=== PATIENT | female | born 2000 | race Caucasian/White ===

== ENCOUNTER 2022-02-11 01:31 | Emergency (ER) | payer MEDICAID ==
[~2022-02-11] VITALS: Ht 172.7 cm; Wt 68.0 kg
[2022-02-11] MEDS ORDERED: ONDANSETRON HCL 4MG/2ML INJ IV STA (01:40)
[2022-02-11] MEDS ORDERED: MORPHINE SULFATE 4 MG/ML CPJ (NOT FOR IM USE) IV STA (01:40)
[2022-02-11] MEDS ORDERED: BACITRACIN ZINC OINT UDPKT TOP ONE (01:45)
[2022-02-11] MEDS ORDERED: TETANUS, DIPHTHERIA, PERTUSSIS VAC/PF 0.5ML (>10YR OLD) IM ONE (01:45)
[2022-02-11] MEDS ORDERED: CEFAZOLIN 1000MG PREMIX 50 ML IV ONE (01:45)
[2022-02-11] MEDS ORDERED: CEPH500C2 MT (04:03)
[2022-02-11] MEDS ORDERED: HYDR-4001 MT (04:03)
[2022-02-11 04:22] VITALS: BP 140/71
== END 2022-02-11 04:22 | disposition home or self-care (01) ==
LOC: EDBD 01:31 → ER 01:31
DX: S92.312B Displaced fracture of first metatarsal bone, left foot, initial encounter for open fracture (principal); S92.322B Displaced fracture of second metatarsal bone, left foot, initial encounter for open fracture; S92.332B Displaced fracture of third metatarsal bone, left foot, initial encounter for open fracture; X93.XXXA Assault by handgun discharge, initial encounter; Y93.89 Activity, other specified; Y92.488 Other paved roadways as the place of occurrence of the external cause
CPT/HCPCS: 29125; 73130; 90471; 90715; 96365; 96375; 99291; J0690; J2270; J2405